=== PATIENT | male | born 1955 | race Caucasian/White ===

== ENCOUNTER 2017-07-28 20:23 | Inpatient (IN) | payer OTHER ==
[~2017-07-28] VITALS: Ht 170.2 cm; Wt 95.0 kg
[~2017-07-28 20:23] MED LIST: ALPRAZOLAM1 M2 PO; BYSTOLIC10 M1 PO; DULOXETINE HCL30 MG PO; LOSARTAN POTAS100 M1 PO
[2017-07-28 20:30] VITALS: BP 119/110
[2017-07-28 21:30] LABS: ABSOLUTE BASOPHIL COUNT 0.1 /CUMM (0.0-0.2); ABSOLUTE EOSINOPHIL COUNT 0.2 /CUMM (0.0-0.7); ABSOLUTE GRANULOCYTE CT 8.3 /CUMM (1.4-6.5); ABSOLUTE MONOCYTE COUNT 0.6 /CUMM (0.10-0.60); BASOPHIL % 0.8 % (0.0-2.0); EOSINOPHIL % 1.5 % (0-5); GRANULOCYTE % 74.5 % (42.2-75.2); HEMATOCRIT 41.8 % (42-52); MEAN CORPUSCULAR HGB 33.9 PG (27.0-31.0); MEAN CORPUSCULAR HGB CONC 33.9 G/DL (33.0-37.0); MEAN PLATELET VOLUME 7.4 FL (7.4-10.4); PLATELET COUNT 180 /CUMM (130-400); RBC DISTRIBUTION WIDTH 16.8 % (11.5-14.5); RED BLOOD CELL CT 4.18 /CUMM (4.70-6.10); WHITE BLOOD CELL COUNT 11.2 /CUMM (4.8-10.8)
--- NOTE | 2017-07-28 21:57 | ED PSYCHIATRIC COMPLAINT ---
History of Present Illness General Chief Complaint: General Adult Stated Complaint: PER SISTER,"FOR CRISIS INTERVENTION" Source: patient, family Exam Limitations: no limitations Vital Signs & Intake/Output Vital Signs & Intake/Output Vital Signs Date Time Temp Pulse Resp B/P B/P Pulse O2 O2 Flow FiO2 Mean Ox Delivery Rate 07/30 1948 98.3 75 156/96 07/30 1945 98.3 75 156/96 07/30 1602 68 156/82 07/30 1556 68 156/82 07/30 1228 66 142/95 07/30 1203 66 142/95 07/30 0829 96.4 72 142/100 07/30 0816 72 142/100 07/30 0816 72 142/100 07/30 0815 72 142/100 07/30 0811 96.4 72 142/100 Allergies Coded Allergies: No Known Allergies (07/27/17) Reconcile Medications Alprazolam 1 MG TABLET 1 TAB PO DAILY ANXIETY (Reported) Duloxetine HCl 30 MG CAPSULE.DR 2 CAP PO DAILY MENTAL HEALTH (Reported) Losartan Potassium 100 MG TABLET 1 TAB PO DAILY BP (Reported) Nebivolol HCl (Bystolic) 10 MG TABLET 1 TAB PO DAILY HEART/BP (Reported) Triage Note: PT FROM HOME C/O ALCOHOL DETOX. PT WAS SEEN HERE YESTERDAY AT [facility] TO RULE OUT A STROKE WHICH ENDED UP BEING SLURRED SPEECH FROM ALCOHOL INTOXICATION. PT STATES HERE TODAY TO ALCOHOL DETOX. PTS BP ELEVATED 190/110 MANUALLY, PT TOOK BYSTOLIC MEDICATION THIS MORNING. HR 83, 02 ON RA 96. PT DENIES ALCOHOL SEIZURE WITHDRAWLS. PT STATES LAST DRINK WAS YESTERDAY AROUND 1500. PT STATES UNKNOWN AMOUNT OF ALCOHOL ("I CANT REMEMBER") PT DRANK VODKA TONIC. PT DENIES -HI/-SI. Triage Nurses Notes Reviewed? yes Duration: acute on chronic Timing: recent history Severity: moderate, severe HPI: 62-year-old male comes into the emergency room for further evaluation of depression and alcohol. Patient has been battling depression and alcohol for 15 /18 years. Things got worse after his son . He has been increasingly depressed. He currently denies any other symptoms. He lives with his . he denies any suicidal or homicidal ideation. (Lance JUDD,Harvinder) Past History Travel History Traveled to [place] past 21 day No Medical History Any Pertinent Medical History? see below for history Cardiovascular: hypertension Psychiatric: alcohol dependence, anxiety, depression Tetanus Vaccine: Surgical History Surgical History: non-contributory Psychosocial History What is your primary language Thai Tobacco Use: Current Daily Use Daily Tobacco Use Amount/Type: =< 4 Cigarettes daily ETOH Use: alcoholic Illicit Drug Use: denies illicit drug use Family History Hx Contributory? No (Harvinder Portillo) Review of Systems Review of Systems Constitutional: Reports: no symptoms. EENTM: Reports: no symptoms. Respiratory: Reports: no symptoms. Cardiovascular: Reports: no symptoms. GI: Reports: no symptoms. Genitourinary: Reports: no symptoms. Musculoskeletal: Reports: no symptoms. Skin: Reports: no symptoms. Neurological/Psychological: Reports: see HPI. Hematologic/Endocrine: Reports: no symptoms. Immunologic/Allergic: Reports: no symptoms. All Other Systems: Reviewed and Negative (Harvinder Portillo) Physical Exam Physical Exam General Appearance: well developed/nourished, mild distress Head: atraumatic Eyes: Bilateral: normal appearance. Ears, Nose, Throat: normal ENT inspection, hearing grossly normal Neck: normal inspection Respiratory: normal breath sounds, no respiratory distress Cardiovascular: regular rate/rhythm Extremities: normal range of motion Neurological/Psychiatric: awake, alert, calm, depressed affect Appearance/Memory/Insight: appropriate appearance, appropriate insight Behavoir/Eye Contact/Speech: cooperative Thoughts/Hallucinations: no apparent hallucination Skin: intact, normal color, warm/dry (Harvinder Portillo) SAD PERSONS Done? CRISIS CONSULT OBTAINED (Jeromy MITCHELL,Latha Lan) Progress Differential Diagnosis: dementia, drug intoxication, drug overdose, drug withdrawal, major depression, PTSD, anxiety, Plan of Care: Current Medications Sig/Betnley Start time Last Medication Dose Stop Time Status Admin Gabapentin 900 MG AT BEDTIME 07/30 2200 AC 07/30 (Neurontin) 2143 Lorazepam 1 MG TID 07/30 1600 AC 07/30 (Ativan) 2144 Gabapentin 300 MG 0800,1400 07/30 1400 AC 07/30 (Neurontin) 1442 Nicotine 21 MG DAILY 07/29 1830 AC 07/30 (Nicoderm) 0817 Nicotine 2 MG Q2P PRN 07/29 1200 AC (Nicotine) Amlodipine Besylate 5 MG DAILY 07/29 1000 AC 07/30 (Norvasc) 0816 Folic Acid 1 MG DAILY 07/29 1000 AC 07/30 (Folic Acid) 0816 Losartan Potassium 100 MG DAILY 07/29 1000 AC 07/30 (Cozaar) 0816 Multivitamins 1 TAB DAILY 07/29 1000 AC 07/30 (Theragran Vitamins) 0816 Nebivolol 10 MG DAILY 07/29 1000 AC 07/30 (Bystolic) 0815 Thiamine HCl 100 MG DAILY 07/29 1000 AC 07/30 (Vitamin B1) 0816 Acetaminophen 650 MG Q4P PRN 07/28 2315 AC (Tylenol) Lorazepam 2 MG Q4 HRS NEEDED PRN 07/28 2314 AC (Ativan) Lorazepam 1 MG Q4 HRS NEEDED PRN 07/28 231 AC (Ativan) Hand-Off Endorsed To: Latha Pinzon MD Endorsed Time: 2242 Pending: consult (crisis) (Harvinder Portillo) Departure Departure Condition: Stable Referrals: Latha Tolentino MD (PCP/Family) Departure Forms: Customer Survey General Discharge Information (Harvinder Portillo) Departure Disposition: STILL A PATIENT Clinical Impression Primary Impression: Depression Secondary Impressions: Alcohol dependency Psych Admission Note Psychiatric Admission: I have seen and evaluated LATHA VELASCO. I have also reviewed all the pertinent lab results and diagnostic results. LATHA VELASCO will be admitted to our inpatient Psychiatric unit for treatment and care. PA/EDGE INKER Co-Sign Statement Statement: ED Attending supervision documentation- [X] I saw and evaluated the patient. I have also reviewed all the pertinent lab results and diagnostic results. I agree with the findings and the plan of care as documented in the PA's/EDGE INKER's documentation. [X] I have reviewed the ED Record and agree with the PA's/EDGE INKER's documentation. [] Additions or exceptions (if any) to the PAs/EDGE INKER's note and plan are summarized below: [Patient to be admitted to Inpatient Psychiatry for unspecified depression and alcohol dependency.] (Latha Pinzon MD) Lorazepam 2 MG AT BEDTIME NEED.. 07/28 2330 AC (Ativan) Acetaminophen 650 MG Q4P PRN 07/285 AC (Tylenol) Lorazepam 2 MG ONCE ONE 07/28 2314 CAN (Ativan) 07/28 2315 Lorazepam 2 MG Q4 HRS NEEDED PRN 07/28 2314 AC (Ativan) Lorazepam 1 MG Q4 HRS NEEDED PRN 07/28 2314 AC (Ativan) Laboratory Tests 07/28/17 2155: Urine Opiates Screen < 100.00, Methadone Screen < 40, Barbiturate Screen < 60, Ur Phencyclidine Scrn < 6.00, Amphetamines Screen < 100, U Benzodiazepines Scrn 261 H, Urine Cocaine Screen < 50, Urine Cannabis Screen < 5.00 07/28/172116: Anion Gap 12, Estimated GFR > 60, BUN/Creatinine Ratio 14.3, Glucose 95, Calcium 9.5, Total Bilirubin 0.5, AST 20, ALT 25, Alkaline Phosphatase 67, Total Protein 6.9, Albumin 4.2, Globulin 2.7, Albumin/Globulin Ratio 1.6, CBC w Diff NO MAN DIFF REQ, RBC 4.18 L, MCV 100.0 H, MCH 33.9 H, MCHC 33.9, RDW 16.8 H, MPV 7.4, Gran % 74.5, Lymphocytes % 17.9 L, Monocytes % 5.3, Eosinophils % 1.5, Basophils % 0.8, Absolute Granulocytes 8.3 H, Absolute Lymphocytes 2.0, Absolute Monocytes 0.6, Absolute Eosinophils 0.2, Absolute Basophils 0.1, Serum Alcohol < 10.0 (Jeromy MITCHELL,Latha Lan) Departure Departure Condition: Stable Referrals: Latha Tolentino MD (PCP/Family) Departure Forms: Customer Survey General Discharge Information (Harvinder Portillo) Departure Disposition: STILL A PATIENT Clinical Impression Primary Impression: Depression Secondary Impressions: Alcohol dependency Psych Admission Note Psychiatric Admission: I have seen and evaluated LATHA VELASCO. I have also reviewed all the pertinent lab results and diagnostic results. LATHA VELASCO will be admitted to our inpatient Psychiatric unit for treatment and care. PA/EDGE INKER Co-Sign Statement Statement: ED Attending supervision documentation- [X] I saw and evaluated the patient. I have also reviewed all the pertinent lab results and diagnostic results. I agree with the findings and the plan of care as documented in the PA's/EDGE INKER's documentation. [X] I have reviewed the ED Record and agree with the PA's/EDGE INKER's documentation. [] Additions or exceptions (if any) to the PAs/EDGE INKER's note and plan are summarized below: [Patient to be admitted to Inpatient Psychiatry for unspecified depression and alcohol dependency.] (Jeromy MITCHELL,Latha Lan)
[2017-07-28 22:05] VITALS: BP 170/95
--- NOTE | 2017-07-28 23:12 | ED PSYCH CRISIS CONSULTATION ---
Crisis Consult Basic Assessment Date of Consult: 07/28/17 Responsible Person/Accompanied By: Brought in by his sister and his son. Insurance Authorization: Insurance #1: Insurance name: MATIAS Phone number: Policy number: [id number] Group number: Authorization number: ED Provider: Patient's ED Provider: Harvinder Portillo Primary Care Physician: Patient's PCP: Robles Tolentino MD PCP's Current Psychiatrist: None Chief Complaint: General Adult Patient's Quote: " I want to straighten this all out." Present Illness: The patient is a 62 year old , male presenting to the ED with increased symptoms of depression, passive SI statements and an increase in alcohol abuse. The patient presents with depressed mood, flat affect and was tearing up during the evaluation. He states that the primary trigger for his depression and alcohol abuse is the loss of his son and father within a one months times span in March of 2001. He states that he has never had any formal treatment for depression or substance abuse, except for seeing therapist for one visit, which he did not find to be helpful. 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 He states that he has noticed an increase in his symptoms and that his family is starting to show concern. He rates his depression a 7 out of 10 ( 10 being most severe), anxiety a 5 out of 10 ( 10 being most severe), and has been feeling helpless at times. He states that he has been experiencing anhedonia and a loss of appetite, noting a 60 pound weight loss, however he is not able to state the timeframe for the weight loss. He does report that his family stated he made a passive SI statement, " I have someone waiting for me on the other side," however he denies that he is suicidal. He denies any HI / AH/ VH. He states that he has noticed an increase in his drinking and that he has been having about 3-4 drinks daily, noting that he only drinks after work. He is motivated to get treatment for his depression and his alcohol abuse and would be willing to sign himself into CPS. SW met with his sister (Portia Machuca [phone]) and his son Rory Hall Jr. ([phone]), for collateral information. They confirm that his depression and alcohol abuse have been getting worse. They note that he has had periods where he was not drinking, however primarily believe that he is drinking all day, everyday lately. They both note that he stated to them independently, that "he has someone waiting on the other side." They are unsure if he would kill himself, however do believe that he does not have concern for his health or wellbeing. They believe that he is slowly killing himself. Per his son, Rory Gillette he missed a meeting at work last week, which was to discuss a coworker smelling alcohol on his breath. Rory Gillette also notes that he was presenting with altered mental status Darius morning, when he was supposed to be at the meeting. It is unclear if he was drinking at that time. They have found him to be isolating and spending less time with his family. They believe that he requires an inpatient admission at this time. Patient's Address: [address] [place] [address] Other Phone Number: Family/Informants Interviewed: Son- Robles Hall Jr. - [phone] Sister- Portia Machuca- [phone] Allergies - Coded Allergies: No Known Allergies (07/27/17) Current Medications - Scheduled Medications Alprazolam 1 MG TABLET 1 TAB PO DAILY ANXIETY #30 (Reported) Entered as Reported by Sandy Fatima on 07/27/171937 Duloxetine HCl 30 MG CAPSULE.DR 2 CAP PO DAILY MENTAL HEALTH #60 (Reported) Entered as Reported by Sandy Fatima on 07/27/171937 Losartan Potassium 100 MG TABLET 1 TAB PO DAILY BP #30 (Reported) Entered as Reported by Sandy Fatima on 07/27/171938 Nebivolol HCl (Bystolic) 10 MG TABLET 1 TAB PO DAILY HEART/BP #30 (Reported) Entered as Reported by Sandy Fatima on 07/27/171938 Laboratory Results: Laboratory Tests 07/28/175: Urine Opiates Screen < 100.00, Methadone Screen < 40, Barbiturate Screen < 60, Ur Phencyclidine Scrn < 6.00, Amphetamines Screen < 100, U Benzodiazepines Scrn 261 H, Urine Cocaine Screen < 50, Urine Cannabis Screen < 5.00 07/28/17 2117: Anion Gap 12, Estimated GFR > 60, BUN/Creatinine Ratio 14.3, Glucose 95, Calcium 9.5, Total Bilirubin 0.5, AST 20, ALT 25, Alkaline Phosphatase 67, Total Protein 6.9, Albumin 4.2, Globulin 2.7, Albumin/Globulin Ratio 1.6, CBC w Diff NO MAN DIFF REQ, RBC 4.18 L, MCV 100.0 H, MCH 33.9 H, MCHC 33.9, RDW 16.8 H, MPV 7.4, Gran % 74.5, Lymphocytes % 17.9 L, Monocytes % 5.3, Eosinophils % 1.5, Basophils % 0.8, Absolute Granulocytes 8.3 H, Absolute Lymphocytes 2.0, Absolute Monocytes 0.6, Absolute Eosinophils 0.2, Absolute Basophils 0.1, Serum Alcohol < 10.0 Past History Past Medical History Cardiovascular: hypertension Psychiatric: alcohol dependence, anxiety, depression Past Surgical History Surgical History: non-contributory Psychosocial History Strengths/Capabilities: He appears to have a very supportive family. He does have good insight into his need for treament and is motivated to attend. Physical Limitations (Interventions): None noted Psychiatric Treatment History Psych Treatment Psychiatric Treatment No (Patient denies) Inpatient Treatment No (N/A) Outpatient Treatment No Location of Treatment N/A Reason for Treatment N/A Dates of Treatment N/A Response to Treatment N/A Diagnosis by History: N/A Substance Use/Abuse History Drug Use/Abuse Substances Used/Abused Yes Substance Used/Abused Alcohol First Use 17 years old Last Used Yesterday; 07/27/2017 How much used/taken "3-4 vodka and tonics." How often He states that he has been drinking daily. For how long Unlcear Route of use oral Substance Abuse Treatment Substance Abuse Treatment Past Substance Abuse [place] No (Patient denies) Inpatient Treatment No (Patient denies) Outpatient Treatment No Location of Treatment N/A Reason for Treatment N/A Dates of Treatment N/A Response to Treatment N/A Comments: N/A Current Mental Status Mental Status Orientation: Person, Place, Situation Affect: Depressed, Flat, Sad Speech: WNL Neuro-vegetative: Anhedonia, Appetite Decreased, Helpless Appearance Appearance- Dress/Hygiene: He was sitting in a chair, in hospital attire, neat clean and well kempt. He did appear to be tearing up throughout the evalution. Behaviors Thought Process: WNL Thought Content: WNL Memory: WNL Insight: WNL SI/HI Risk Assessment Past Suicidal Ideation/Attempts No (patient denies) Current Suicidal Ideation/Att No Past Homicidal Ideation/Att: No Current Homicidal Ideation/Attempts No Degree of Intent: He denies any current suicidal ideation and states that would not kill himself because of his grandchildren. Per his family he has been making passive suicidal statements; " I have some one waiting for me on the other side. " Danger To: Self Gravely Disabled: N/A Risk Factors: high anxiety/distress, substance abuse, male Lethality Ratin PTSD Checklist PTSD Done? patient declined (Denies trauma or abuse hx.) ED Management Sitter: Yes Restraints: No DSM5/PS Stressors/Medical Prob Diagnosis' (DSM 5, Stressors, Medical): F32.9 Unspecified Depressive Disorder F10.20 Alcohol Use Disorder Medical: Hypertension Stressors: prolonged grief Current GAF: 29 Comments: N/A Departure Disposition Psych Medical Clearance Date: 07/28/17 Medically Cleared at: 2229 Time Started: 2229 Time Ended: 2314 Psychiatrist Consulted: Dr. Armando Date Disposition Established: 07/28/17 Time Disposition Established: 2314 Plan for Disposition - Modality: Inpatient Psychiatry Facility: [facility] Contact: N/A Telephone: N/A Rationale for Disposition: The patient is a 62 year old , male presenting to the ED with increased symptoms of depression, passive SI statements and an increase in alcohol abuse. The case was discussed with Dr. Parra and he would like to admit the patient to [facility]PS on a voluntary basis. The patient is in agreement with the admission and signed the voluntary form. Type of IP Admission: Voluntary Additional Instructions: N/A Referrals Robles Tolentino MD (PCP/Family)
--- NOTE | 2017-07-28 23:42 | IP CRISIS DIAG ASSESS PSYCH ---
Diagnostic Assessment Basic Assessment Insurance Authorization: Insurance #1: Insurance name: MATIAS Policy number: [id number] Authorization number: [id number] Authorization received from Wayne Ortiz at [facility] ([facility]) / [facility] 1 [phone] Please contact [phone] for concurrent review . Authorization is for 4 days 07/29 to 08/01 . Review will be on 08/01. Primary Care Physician: Patient's PCP: Robles Tolentino MD PCP's Patient's Quote: " I want to straighten this all out." Present Illness: Crisis evaluation with Shayy Noriega LCSW 07/28/2017 22:30 The patient is a 62 year old , caucasain male presenting to the ED with increased symptoms of depression, passive SI statements and an increase in alcohol abuse. The patient presents with depressed mood, flat affect and was tearing up during the evaluation. He states that the primary trigger for his depression and alcohol abuse is the loss of his son and father within a one months times span in March of 2001. He states that he has never had any formal treatment for deprssion or substnace abuse, except for seeing therapist for one visit, which he did not find to be helpul. 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 He states that he has noticed an increase in his smypomts and that his family is starting to show concern. He rates his depression a 7 out of 10 ( 10 being most severe), anxiety a 5 out of 10 ( 10 being most severe), and has been feeling helpless at times. He states that he has been experiencing anhedonia and a loss of appetite, nonting a 60 pound weight loss, however he is not able to state the timeframe for the weight loss. He does report that his family stated he made a passive SI statement, " I have someone waiting for me on the other side," however he denies that he is suicidal. He denies any HI / AH/ VH. He states that he has noticed an increase in his dirnking and htat he has been having about 3-4 drinks daily, noting that he only drinks after work. He is motivated to get treatment for his depression and his alcohol abuse and would be willing to sign himself into CPS. SW met with his sister (Portia Machuca [phone]) and his son Rory Hall Jr. ([phone]), for collateral information. They confirm that his deprssion and alcohol abuse have been getting worse. They note that he has had periods where he was not drinking, however pimarily believe that he is drinking all day, everyday lately. They both note that he stated to them independently, that "he has someone waiting on the other side." They are unsure if he would kill himself, however do believe that he does not have concen for his helath or wellbeing. They believe that he is slowly killing himself. Per his son, Rory Gillette he missed a meeting at work last week, which was to discuss a coworker smelling alcohol on his breath. Rory Gillette also notes that he was presenitng with altered mental status Darius morning, when he was supposed to be at the meeting. It is unclear if he was drinking at that time. They have found him to be isolating and spending less time with his family. Patient's Address: [address] [place] [address] Who Do You Live With? Spouse Feel Safe Where You Live? Yes Feel Safe in Your Relationship Yes Marital Status: Do You Have Children? Yes Ages? 36 Primary Language? Malay Language(s) Spoken At Home: Malay Family/Informants Interviewed: , sister, and son Robles Gillette Allergies - Coded Allergies: No Known Allergies (07/27/17) Current Medications - Scheduled Medications Alprazolam 1 MG TABLET 1 TAB PO DAILY ANXIETY #30 (Reported) Entered as Reported by Sandy Fatima on 07/27/171937 Duloxetine HCl 30 MG CAPSULE.DR White CAP PO DAILY MENTAL HEALTH #60 (Reported) Entered as Reported by Sandy Fatima on 07/27/171937 Losartan Potassium 100 MG TABLET 1 TAB PO DAILY BP #30 (Reported) Entered as Reported by Sandy Fatima on 07/27/171938 Nebivolol HCl (Bystolic) 10 MG TABLET 1 TAB PO DAILY HEART/BP #30 (Reported) Entered as Reported by Sandy Fatima on 07/27/17 1939 Consequences of Psych Med Use: N/A Comment: - Lab Results: Laboratory Tests 07/28/172154: Urine Opiates Screen < 100.00, Methadone Screen < 40, Barbiturate Screen < 60, Ur Phencyclidine Scrn < 6.00, Amphetamines Screen < 100, U Benzodiazepines Scrn 261 H, Urine Cocaine Screen < 50, Urine Cannabis Screen < 5.00 07/28/172116: Anion Gap 12, Estimated GFR > 60, BUN/Creatinine Ratio 14.3, Glucose 95, Calcium 9.5, Total Bilirubin 0.5, AST 20, ALT 25, Alkaline Phosphatase 67, Total Protein 6.9, Albumin 4.2, Globulin 2.7, Albumin/Globulin Ratio 1.6, CBC w Diff NO MAN DIFF REQ, RBC 4.18 L, MCV 100.0 H, MCH 33.9 H, MCHC 33.9, RDW 16.8 H, MPV 7.4, Gran % 74.5, Lymphocytes % 17.9 L, Monocytes % 5.3, Eosinophils % 1.5, Basophils % 0.8, Absolute Granulocytes 8.3 H, Absolute Lymphocytes 2.0, Absolute Monocytes 0.6, Absolute Eosinophils 0.2, Absolute Basophils 0.1, Serum Alcohol < 10.0 Toxicology Screen Completed? Yes Results: positive (Benzo) Symptoms of Use: N/A Benzo is prescribed Past History Past Medical History Medical History: None/Denies Past Surgical History Surgical History none Abuse/Trauma History Trauma History/Current Trauma: Denies Legal History Current Legal Status: none Have you ever been arrested? No Number of Arrests: [address] Dates: None Board Attendant N/A Psychosocial History Strengths/Capabilities: Patient is employed. Patient has a close supportive family. Physical Limitations (Interventions): None Psychiatric Treatment History Psych Treatment Psychiatric Treatment No Inpatient Treatment No Outpatient Treatment No Location of Treatment - Reason for Treatment - Dates of Treatment - Response to Treatment - Diagnosis by History: Depression Risk Factors: male Substance Use/Abuse History Drug Use/Abuse minimum 12mo Hx Substances Used/Abused Yes Substance Used/Abused Alcohol First Use Unspecified Last Used yesterday How much used/taken 1/2 bottle of vodka - patient drinks vodka tonics How often Daily For how long 4-5 years Route of use Ingestion Substance Abuse Treatment Substance Abuse Treatment Past Substance Abuse TX No Inpatient Treatment No Outpatient Treatment No Location of Treatment - Reason for Treatment - Dates of Treatment - Response to Treatment - Comments: - Sexual History Sexually Active No # of partners 01 Sexual Orientation Heterosexual Sexual Concerns: None specified Education History Highest Level of Education: not sure Preferred Learning Style: Not assessed Current Mental Status Mental Status Orientation: Person, Place, Situation Affect: Depressed Speech: WNL Neuro-vegetative: Anhedonia, Helpless, Loss of Interest Appearance Appearance- Dress/Hygiene: Patient is well groomed with no remarkable features. Behaviors Thought Process: WNL Thought Content: WNL Memory: WNL Insight: WNL SI/HI Risk Assessment - Minimum 6mo History- Past Suicidal Ideation/Attempts Yes (Suicidal statements) Current Suicidal Ideation/Att Yes (Passive SI recently. No intent) Past Homicidal Ideation/Att: No Current Homicidal Ideation/Attempts No Degree of Intent: None Danger To: Self Gravely Disabled: Lack of Insight, Poor Impulse Control, Poor Judgment Risk Factors: high anxiety/distress, substance abuse, lack of outcome concern, weapons access, male Lethality Ratin Needs/Init TX Plan/Goals: Patient requires psychiatric evaluation with consideration of medication management. Patient will participate in [facility] treatment. Patient will participate in social work assessment. Patient will receive substance use counseling and alcohol related treatement for potential withdrawal. AUDIT-C Questionnaire: AUDIT-C Questionnaire: Response Value ETOH use in the past year 4 or more per week 4 # drinks typical/day 5 or 6 2 6 or > drinks per occasion Weekly 3 Total 9 DSM5/PS Stressors/Medical Prob Diagnosis' (DSM 5, Stressors, Medical): F32.9 Unspecified depressive disorder F10.20 Alcohol use disorder, moderate Current GAF: 20 Comments: Substance use Bereavement of son F10.20 Alcohol use disorder, moderate Current GAF: 20 Comments: Substance use Bereavement of son
[2017-07-29] VITALS (14 sets, daily range): BP systolic 140–164; BP diastolic 88–118
--- NOTE | 2017-07-29 08:51 | CPS PROVIDER INIT ASMT PSYCH ---
Psychiatric Admission Rock Loader's Note Reviewed: Yes Patient Seen and Examined: Yes Identifying Information: Robles is a 62-year-old White male presenting to the ED with increased symptoms of depression, and an increase in alcohol consumption. Chief Complaint: " I want to straighten this all out." Reaction to Hospitalization: voluntary admission History of Present Illness Onset of Illness: Gradual onset, chronic symptoms, with worsening over past few weeks Circumstances Leading to Admission: increasing depression and impairment in daily function as well as daily alcohol use Problem(s) Justifying Need for Admission: severe depressed and vague statements suggesting a sense of hopelessness, sense of worthlessness of life and maybe even lack of concern about risk of Past Psychiatric History Past Diagnosis(es)- if any: Depression and anxiety since the of son, Alcohol use disorder Past Precipitating Factors- if any: not liking antidepressants/not taking them and alcohol use - Include inpatient and outpatient treatment Treatment History: minimal, PCP tried helping him with medications, patient has never been inpatient or in IOP or under the care of a psychiatrist History of Suicide Attempts or Gestures Patient denied ever attempting suicide Substance Abuse History: Alcohol (has been getting gradual worse lately) Allergies: Coded Allergies: No Known Allergies (07/27/17) Home Med List: he reported that he has not been taking Cymbalta he said he was taking Xanax and his BP medications - Include any medical condition(s) that may - impact the patient's recovery/remission Past Medical History: Hypertension Past History Medical History Cardiovascular: hypertension Psychiatric: alcohol dependence, anxiety, depression History of MRSA: No History of VRE: No History of CDIFF: No Isolation History: Standard Tetanus Vaccine: Surgical History Surgical History: none Psychiatric Family/Social Hx Family History Psychiatric Illness: none Substance Use: none Suicides: none Social History Living Situation: stable housing Significant Relationships (family/friends): very supportive family Education: see biopsychosocial 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 - #1 Recognizing dangerous situations. - #2 Coping Skills. - #3 Basic information about quitting. Status of Tobacco Cessation Counseling: #1, #2 AND #3 Completed Cessation Med Status Nicotine Gum Ordered Alcohol Screening - ETOH screen POS if BAL >=80 or Audit-C>= M4/F3 Audit-C Score from Diag Assess: 9 Blood Alcohol Level: Laboratory Tests 07/28 2116 Toxicology Serum Alcohol (<10 MG/DL) < 10.0 Alcohol Use Screening Results: Pos per Audit C &/or BAL - If ETOH counseling indicated - the following topics are required. - #1 Express concern about the patient's - drinking at unhealthy levels, include informing - of national norms for moderate drinking: - men <= 14 drinks/week, max 4 drinks/occasion - women <= 7 drinks/week, max 3 drinks/occasion - #2 Providing feedback, including linking alcohol to - negative physical effects (liver injury, hypertension) - negative emotional effects (relationship problems and - depression) - negative occupational consequences (reduced work - performance) - #3 Advising the patient to abstain from alcohol or - to drink below national norms for moderate drinking - (as listed above). Status of ETOH Use Counseling: #1, #2 AND #3 Completed. Metabolic Screening - Screen if on a Neuroleptic Medication - Metabolic screening should include: - Blood Pressure, BMI, Glucose or Hgb A1c, & a - Lipid profile from within the past 365 days. Metabolic Screening ([X]) Not Applicable, patient not on a neuroleptic. OR () Patient on a neuroleptic(s) . Enter below results for Hemoglobin A1C, and lipid panel if obtained during the last 365 days. BMI: 32.000 Blood Pressure: 150/100 Laboratory Results From [facility] (If applicable): Exam and Plan Mental Status Examination Ambulation Status: ambulates independently with need for walker or wheelchair Appearance: unremarkable Attitude towards examiner: Calm and cooperative Psychomotor activity: Normal psychomotor activity Behavior: No abnormal behaviors Quality of speech: Normal speech, not pressured, not slurred Affect: Good range of affect Mood: Does not believe that he is that depressed, some anxiety Suicidal Ideation: Denied thinking of suicide Homicidal Ideation: Denied thinking of violence or homicide Hallucinations: Denied hallucinations Paranoid/Delusional Material: Denied feeling paranoid, there were no delusions Difficulties with thought organization: There were no difficulties with thought organization, he was coherent Insight: Partial insight Judgment: Depends on sobriety Orientation: He was oriented to time place and person Cognition: There was no gross deficits in cognition Memory Function: There was no gross deficit in memory Estimate of intellectual functioning: Average Assets/Strengths Patient Identified Assets/Strengths: Patient is hard-working and likable, he has a very supportive family, he has stable housing, and he still has a job Impression/Plan Impression and Plan: 62-year-old white male who presents with increasing depression and increasing consumption of alcohol. He has no prior history of inpatient psychiatric admissions. He has no prior history of suicide attempts. He has no prior history of detoxifications or rehabs. - Include all active medical diagnosis that require tx DSM 5 Diagnosis(es): Unspecified depressive disorder Alcohol use disorder, severe Hypertension - Initial Tx Plan for Active Psych & Medical Conditions Treatment Plan: Inpatient psychiatric care, 15 minute checks, the nursing will do nursing assessments vital signs and provide education The foster care social worker to obtain collateral information and set up aftercare plans Group therapy Milieu therapy Psychiatrist will meet with the patient on a daily basis to evaluate mental status and evaluate medications [facility] protocol H&P by Grab Hooker - Factors that would help patient function - in a less restrictive setting. Factors: Abstinence from alcohol
--- NOTE | 2017-07-29 14:27 | SOCIAL WORKER SOCIAL HX PSYCH ---
Vandana Walker 07/29/17 1403: Social History Basic Assessment Insurance Authorization: Insurance #1: Insurance name: [facility] Phone number: Policy number: [id number] Group number: Authorization number: Curr Source of Income/Entitlements: employment Primary Care Physician: Patient's PCP: Robles Tolentino MD PCP's Primary Language? Omani Language(s) Spoken At Home: Omani Living Situation Rents or Owns Home? owns Feel Safe Where You Are Living Yes Feel Safe in Relationships? Yes Allergies - Coded Allergies: nicotine (Mild, skin rash to patch formulation only 08/02/17) Past History Past Medical History Cardiovascular: hypertension Psychiatric: alcohol dependence, anxiety, depression Past Surgical History Surgical History: non-contributory /Family History Place/Country of Origin: [place] Childhood Family Constellation: Mother, father, 2 sisters and 2 brothers Primary Childhood Caretakers: father, mother Family Life During Childhood: "Okay" DCF Involvement? No Mother's Age (Current/): 92 Relationship w/Mother: "Very good" Father's Age (Current/): 71 Relationship w/Father: "Very good" Any Sibling(s)? Yes Sibling's Gender(s)/Age(s): female Sibling 1: (70), male Sibling 2: (67), female Sibling 3: (62), male Sibling 4: (54) Relationship w/Sibling(s): "Good" Family Psych/Sub Abuse/Add Hx: None Abuse/Trauma History Trauma History/Current Trauma: Denies Legal History Have you ever been arrested No Number of Arrests: 0 Hx of Juvenile Legal Charges? No Hx of Adult Legal Charges? No Civil Proceedings: Being sued, unsure of court date. Didn't elaborate. Child Protective Serv Involvmnt No Toby Maker N/A Psychosocial History Primary Support System: sibling(s), friend, son Strengths/Capabilities: He appears to have a very supportive family. He does have good insight into his need for treament and is motivated to attend. Physical Limitations (Interventions): None noted Last Physical: 6 months ago (Jan 2017) History of Seizures? No History of Blackouts? No [place]/Social/Peer Relations Has a close group of friends Meaningful Activities: Likes to do things with his hands Childhood Jehovah'S Witness: Yazidi Current Mandaen Affiliation: Yazidi Is Spirituality Important to You? Yes Patient's Ethnicity: Luxembourger, Welsh Cultural/Ethnic Issues: None Are There Developmental Issues? No Milestones Achieved: fine motor, gross motor Psychiatric Treatment History Psych Treatment Inpatient Treatment No (N/A) Outpatient Treatment No Location of Treatment N/A Reason for Treatment N/A Dates of Treatment N/A Response to Treatment N/A Diagnosis: N/A Risk Factors: high anxiety/distress, substance abuse, male Substance Use/Abuse History Drug Use/Abuse Substance Used/Abused Alcohol First Use 17 years old Last Used Yesterday; 07/27/2017 How much used/taken "3-4 vodka and tonics." How often He states that he has been drinking daily. For how long Unlcear Route of use oral Have Had Periods of Sobriety? Yes Explain: Unclear Have You Ever Attended AA? Yes Symptoms of Use: N/A Benzo is prescribed Substance Abuse Treatment Substance Abuse Treatment Inpatient Treatment No (Patient denies) Outpatient Treatment No Location of Treatment N/A Reason for Treatment N/A Dates of Treatment N/A Response to Treatment N/A Sexual History Sexually Active No # of partners 01 Sexual Orientation Heterosexual Sexual Concerns: None specified Education History Highest Level of Education: not sure Preferred Learning Style: Not assessed HX of Learning Difficulties: None reported Barriers to Learning: None reported Special Communication Needs: None reported Employment History Employment Employed 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 Pt then worked in the [employer] and currently works for the town [employer]. History Have You Been in The ? No Current Mental Status Mental Status Orientation: Person, Place, Situation Affect: Depressed, Flat, Sad Speech: WNL Neuro-vegetative: Anhedonia, Appetite Decreased, Helpless Appearance Appearance- Dress/Hygiene: He was sitting in a chair, in hospital attire, neat clean and well kempt. He did appear to be tearing up throughout the evalution. Behaviors Thought Process: WNL Thought Content: WNL Memory: WNL Insight: WNL SI/HI Risk Assessment Past Suicidal Ideation/Attempts No (patient denies) Current Suicidal Ideation/Att No Past Homicidal Ideation/Att: No Current Homicidal Ideation/Attempts No Degree of Intent: He denies any current suicidal ideation and states that would not kill himself because of his grandchildren. Per his family he has been making passive suicidal statements; " I have some one waiting for me on the other side. " Danger To: Self Gravely Disabled: N/A Lethality Ratin - Conclusion and Recommendations for treatment - and discharge planning Marvin Clark 08/05/17 0803: Social History Current Medications - Scheduled Medications Amlodipine Besylate (Norvasc) 10 MG TABLET 10 MG PO DAILY high blood pressure #30 TAB Prescribed by Je Armando MD on 08/04/17 Gabapentin 300 MG CAPSULE 300 MG PO 0800,1400 reducing risk for seizures #60 CAP Prescribed by Je Armando MD on 08/04/17 Gabapentin 300 MG CAPSULE 900 MG PO AT BEDTIME reduce risk of seizure + sleep #90 CAP Prescribed by Je Armando MD on 08/04/17 Losartan Potassium 100 MG TABLET 1 TAB PO DAILY BP #30 (Reported) Entered as Reported by Sandy Fatima on 07/27/171938 Naltrexone HCl 50 MG TABLET 50 MG PO DAILY alcohol cravings #30 TAB Prescribed by Je Armando MD on 08/04/17 Nebivolol HCl (Bystolic) 10 MG TABLET 1 TAB PO DAILY HEART/BP #30 (Reported) Entered as Reported by Sandy Fatima on 07/27/171938 Sertraline HCl 50 MG TABLET 50 MG PO DAILY depression and anxiety #30 TAB Prescribed by Je Armando MD on 08/04/17 Discontinued Medications Alprazolam 1 MG TABLET 1 TAB PO DAILY ANXIETY #30 (Reported) Discontinued reason: Per Doctor Decision Duloxetine HCl 30 MG CAPSULE. 2 CAP PO DAILY MENTAL HEALTH #60 (Reported) Discontinued reason: Changed to different med Current Mental Status - Conclusion and Recommendations for treatment - and discharge planning
--- NOTE | 2017-07-29 15:39 | SOCIAL WORKER PROG NOTE PSYCH ---
Social Work Progress Note Progress Note Robles reports that he had an "episode" on Friday. Stated he was drinking and that he blacked out. He reports that he has been drinking for a long time, but has never experienced anything like that. When asked how much he has been drinking? He stated that it has been 2-4 cocktails a night after work. He shared that he was recently put on Cymbalta by his prescriber Elham Negron. He said he stopped the medication after being on it for 3 weeks due to feeling dizzy and light headed. He also reported that he was being prescribed Ativan since 2000 and had been taking that daily up until about a week ago. He stopped it abruptly as he stated he got frustrated with having to call for it so frequently now that the rules about prescribing have changed. He has been taking Ativan since his son's . He talked about the loss of his son, Father, and Uncle all within a 3 month period of time. His son was killed by a drunk front end loader driver [place] [address] at age 22. He has not really processed his loss. He saw a therapist 1x and then never went back. When asked why? He stated it was his attitude, as he didn't feel they could help him. He reports that he doesn't have a day that passes that he isn't thinking about what happened with his son. He feels his handles things better than he does. He has another son Robles, who helped him come to the hospital. Robles stated he is open to having his son and his come in for a family meeting. We talked about the idea of tx for his drinking and depression. He is considering rehab and mentioned [facility] as a possibility. I gave him some information on [facility] and on [facility]. He said he will look over the information and discuss it with family. He is not concerned about having time off from work. He currently works for the [employer] department in [place]. He says he works 60- 70 hours a week and they owe him months of comp time. He denies being suicidal or having any hx of being suicidal. He has never been in tx before. He doesn't know what to expect. I told him he can certainly call places to ask additional questions if that would help make a decision. Overall, Robles wants to get back to life as he knows it. Somewhat tearful in talking about his son. Mood seems calm, cooperative. Called Mrs. Hall to schedule a family meeting. We will meet at 11am. She will coordinate with her son to come as well.
--- NOTE | 2017-07-29 20:14 | History & Physical ---
General Information and HPI MD Statement: I have seen and personally examined LATHA VELASCO and documented this H&P. The patient is a 62 year old M who presented with a patient stated chief complaint of "I want to straighten this all out" ]. Source of Information: patient, family Exam Limitations: no limitations History of Present Illness: 62 year old male brought in by sister for crisis intervention. For ETOH detox elevated BP and depression. Has had no seizures no withdrawal signs. The depression got worse after his son . has depressive mood,flat affect,feeling helpless at times. For all this reasons admitted. Allergies/Medications Allergies: Coded Allergies: No Known Allergies (07/27/17) Home Med list Alprazolam 1 MG TABLET 1 TAB PO DAILY ANXIETY (Reported) Duloxetine HCl 30 MG CAPSULE.DR 2 CAP PO DAILY MENTAL HEALTH (Reported) Losartan Potassium 100 MG TABLET 1 TAB PO DAILY BP (Reported) Nebivolol HCl (Bystolic) 10 MG TABLET 1 TAB PO DAILY HEART/BP (Reported) Compliance With Home Meds: UNKNOWN Past History Travel History Traveled to [place] past 21 day No Medical History Cardiovascular: hypertension Psychiatric: alcohol dependence, anxiety, depression History of MRSA: No History of VRE: No History of CDIFF: No Isolation History: Standard Tetanus Vaccine: Surgical History Surgical History: non-contributory Past Family/Social History Psychosocial History Where do you live? 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 Exam & Diagnostic Data Last 24 Hrs of Vital Signs/I&O Vital Signs Date Time Temp Pulse Resp B/P B/P Pulse O2 O2 Flow FiO2 Mean Ox Delivery Rate / 1614 68 140/92 / 1610 140/92 / 1603 68 163/100 /06 1214 80 146/96 02/06 1212 80 146/96 02/ 1055 97.3 92 16 150/100 02/06 1054 97.3 92 16 150/100 02/06 1054 97.3 92 16 150/100 02/06 0820 97.3 92 150/100 02/06 0809 97.3 92 150/100 02/06 0633 88 16 164/92 02/ 0225 97.2 92 16 164/102 02/06 0224 97.2 92 16 164/102 02/06 0157 152/94 02/06 0148 97.8 89 18 132/102 96 Room Air 02/ 0031 98.0 82 18 162/118 02/06 0005 98.0 82 18 162/118 02/06 0005 98.0 82 18 162/118 96 Room Air / 2205 98.3 71 20 170/95 /2203 98.3 71 20 170/95 98 Room Air 07/28 2029 96.0 83 18 119/110 /2029 96.0 83 18 190/110 96 Room Air Intake & Output 07/29 1600 07/29 0800 02/ 0000 Intake Total 0 Output Total Balance 0 Intake, Oral 0 Patient 209 lb 210 lb Weight Weight Reported by Patient Measurement Method Physical Exam General Appearance Alert, Oriented X3, Cooperative, No Acute Distress Skin No Rashes HEENT PERRLA, EOMI Neck Supple, No JVD, No thryomegaly Lymphatic Axillary nl, Cervical nl Cardiovascular Regular Rate, No Murmurs Lungs Clear to Auscultation, Normal Air Movement Abdomen Soft, No Tenderness, No Hepatospenomegaly Neurological Exam Findings: Normal Gait, Normal Speech, Strength at 5/5 X4 Ext, Normal Tone, Sensation Intact, Cranial Nerves 3-12 NL, Reflexes 2+ Cranial Nerves II through XII: Intact. Extremities No Edema, Normal Pulses Vascular Normal Pulses, Pulses Symmetrical Last 24 Hrs of Labs/Reji: Laboratory Tests 07/28/172154: Urine Opiates Screen < 100.00, Methadone Screen < 40, Barbiturate Screen < 60, Ur Phencyclidine Scrn < 6.00, Amphetamines Screen < 100, U Benzodiazepines Scrn 261 H, Urine Cocaine Screen < 50, Urine Cannabis Screen < 5.00 07/28/172116: Anion Gap 12, Estimated GFR > 60, BUN/Creatinine Ratio 14.3, Glucose 95, Calcium 9.5, Total Bilirubin 0.5, AST 20, ALT 25, Alkaline Phosphatase 67, Total Protein 6.9, Albumin 4.2, Globulin 2.7, Albumin/Globulin Ratio 1.6, CBC w Diff NO MAN DIFF REQ, RBC 4.18 L, MCV 100.0 H, MCH 33.9 H, MCHC 33.9, RDW 16.8 H, MPV 7.4, Gran % 74.5, Lymphocytes % 17.9 L, Monocytes % 5.3, Eosinophils % 1.5, Basophils % 0.8, Absolute Granulocytes 8.3 H, Absolute Lymphocytes 2.0, Absolute Monocytes 0.6, Absolute Eosinophils 0.2, Absolute Basophils 0.1, Serum Alcohol < 10.0 Assessment/Plan As Ranked By This Provider Problem List: 1. Depression 2. Alcohol dependency Miscellaneous Miscellaneous Documentation Attending Case Discussed With: Je Armando MD Primary Care Physician: Latha Tolentino MD Patient sees these Specialists psych. Level of Patient Care: [facility] Consults Needed: Consulting Specialty: Psychiatry Consulting Physician: Dr. Potter Reason for Consult: Depression, ETOH excess.
[2017-07-30] VITALS (8 sets, daily range): BP systolic 142–156; BP diastolic 82–100
--- NOTE | 2017-07-30 10:35 | CP SOUTH PROGRESS NOTE PSYCH ---
Psych (Inpt) Progress Note Progress Note Mental Status Examination: Blood pressure 142/100, pulse 72 bpm, and temperature 96.4 Robles ambulates independently with no need for walker or wheelchair, Calm and cooperative Normal psychomotor activity, no tremulousness , no sweating and no abnormal behaviors Normal speech, not pressured, not slurred; Good range of affect, Does not believe that he is that depressed, he does acknowledge having anxiety; Denied thinking of suicide; Denied thinking of violence or homicide Denied hallucinations Denied feeling paranoid, there were no delusions There were no difficulties with thought organization, he was coherent Partial insight He was oriented to time place and person There was no gross deficits in cognition There was no gross deficit in memory Impression and Plan: Robles is a 62-year-old White male presenting to the ED with increased symptoms of depression, and an increase in alcohol consumption with a chief complaint of I want to straighten this all out." Gradual onset, chronic symptoms, with worsening over past few weeks It appears that the patient was on 1mg Xanax daily for several years and ran out about a week before his admission because he was embarrassed to keep calling PCP office for re-fills. He has no prior history of inpatient psychiatric admissions. He has no prior history of suicide attempts. He has no prior history of detoxifications or rehabs. Likely Diagnoses: Unspecified depressive disorder Unspecified Anxiety Disorder Alcohol use disorder, severe Hypertension Treatment Plan Update: Continue CIWA protocol Reduce Ativan to 1 mg TID Add Gabapentin 300 mg twice in daytime and 900 mg at bedtime Inpatient psychiatric care, 15 minute checks, the nursing will do nursing assessments vital signs and provide education; The social media director to obtain collateral information and set up aftercare plans Group therapy, Milieu therapy, Psychiatrist will meet with the patient on a daily basis to evaluate mental status and evaluate medications
--- NOTE | 2017-07-30 13:48 | SOCIAL WORKER PROG NOTE PSYCH ---
Social Work Progress Note Progress Note Robles shared that things are going okay on the unit, other than his desire to leave soon he reports feeling okay. I told him that a family meeting has been scheduled for tomorrow at 11am. He stated that he has not yet talked with his or son about rehab and he still hasn't made up his mind. The more we talked about it the more it sounded as if he really didn't want to go. He then stated "I don't think it's for me", "I don't think it's necessary." He said he would not go if it is up to him, but he isn't sure what his family is expecting. I asked if he was interested in further treatment at all? He said maybe. I mentioned IOP being another option. He said he would talk it over with family and we would discuss it at the family meeting tomorrow. Talked about how he does seem to be self-medicating some symptoms and that there is benefit in being able to work through
--- NOTE | 2017-07-30 13:54 | SOCIAL WORKER PROG NOTE PSYCH ---
Social Work Progress Note Progress Note Robles shared that things are going okay on the unit, other than his desire to leave soon he reports feeling okay. I told him that a family meeting has been scheduled for tomorrow at 11am. He stated that he has not yet talked with his or son about rehab and he still hasn't made up his mind. The more we talked about it the more it sounded as if he really didn't want to go. He then stated "I don't think it's for me", "I don't think it's necessary." He said he would not go if it is up to him, but he isn't sure what his family is expecting. I asked if he was interested in further treatment at all? He said maybe. I mentioned IOP being another option. He said he would talk it over with family and we would discuss it at the family meeting tomorrow. Talked about how he does seem to be self-medicating some symptoms and that there is benefit in being able to work through his issues. He mentioned seeking out AA. He has never tried AA before. Talked about the benefits of rehab vs. leaving the program and going to outpatient. Gave him an AA meeting book.
[2017-07-31] VITALS (9 sets, daily range): BP systolic 142–157; BP diastolic 82–97
--- NOTE | 2017-07-31 09:12 | CP SOUTH PROGRESS NOTE PSYCH ---
Psych (Inpt) Progress Note Progress Note Vitals Blood Pressure 153/92 07/31/17 Pulse Rate 77 07/31/17 Temperature 97.4 07/31/17 Mental Status Examination: Robles was alert, and oriented to time, place, and person. He was calm and cooperative. He showed normal psychomotor activity, no tremulousness, no sweating, and no abnormal behaviors. Normal speech, not pressured, not slurred. Good range of affect, reports anxiety and only mild depression He denied thinking of suicide, denied thinking of violence or homicide. Denied hallucinations, denied feeling paranoid, there were no delusions. There were no difficulties with thought organization, he was coherent. There was no gross deficits in cognition, no gross deficit in memory Impression and Plan: Robles is a 62-year-old White male who was admitted to [facility] for increased symptoms of depression, and an increase in alcohol consumption. It appears that the patient was on 1mg Xanax daily for several years and ran out about a week before his admission because he was embarrassed to keep calling PCP office for re-fills. He has no prior history of inpatient psychiatric admissions. He has no prior history of suicide attempts. He has no prior history of detoxifications or rehabs. Diagnoses: Unspecified depressive disorder Unspecified Anxiety Disorder Alcohol use disorder, severe Hypertension Treatment Plan Update: Increase amlodipine to 10 mg daily Inpatient psychiatric care, 15 minute checks, the nursing will do nursing assessments vital signs and provide education, The social work manager to obtain collateral information and set up aftercare plans Group therapy, Milieu therapy Psychiatrist will meet with the patient on a daily basis to evaluate mental status and evaluate medications Continue [facility] protocol
--- NOTE | 2017-07-31 12:18 | SOCIAL WORKER PROG NOTE PSYCH ---
Social Work Progress Note Progress Note Family meeting held with Robles, his , and his son Robles Varner. Dr. Carbajal was also in attendance. Mrs. Hall and Robles's son talked at length about Robles's drinking behavior and how it has worsened over the years after his son's passing in 2000. They feel it is at a point where he is not really functioning like he was and is at risk for serious health problems. They conveyed their concerns about all of this and expressed his need to get help now. Family is pushing for him to go to rehab. Robles sat quietly with his arms crossed at the meeting. He was encouraged to share his thoughts. He told them he really didn' t want to go. He has alot of anxieties about not knowing what to expect. There was alot of discussion around the benefits that rehab could provide to him. Family definetely would like to see engagement in treatment. He stated in the end that he would think about things. Later in the afternoon I was informed that he signed a release for [facility]. I called admissions and gave some basic demographic information and insurance. I faxed over a clinical packet and was told that Robles should call his insurance to allow information to be given to [facility].
[2017-08-01] VITALS (7 sets, daily range): BP systolic 125–161; BP diastolic 73–85
--- NOTE | 2017-08-01 11:52 | SOCIAL WORKER PROG NOTE PSYCH ---
Social Work Progress Note Progress Note Spoke with Robles about admission to [facility]. He wanted to proceed with the phone call to insurance. After calling member services, we discovered that his son had already given permission for [employer] to speak with [employer]. Called Admissions at [facility] and spoke with Eliu. Eliu was able to do a screening with Robles over the phone. Robles hung up and shared that they have to work out payment with Robles's . They think that Robles may end up owing around 6,000. They are willing to set up a payment plan. He said he will need to come off of the Ativan he is currently on. They don't see accepting him until at least Friday so he can come off the Ativan. He seems okay with this plan. He said he is doing well. Remains quiet with flat constricted affect. Doing some reading to pass the time. He asked if he could go home and finish the Ativan taper? I told him that we would do a seamless transition to [employer]. Called [employer] and left updated clinical for continued stay with queenie- ext. [phone].
--- NOTE | 2017-08-01 12:39 | CP SOUTH PROGRESS NOTE PSYCH ---
Psych (Inpt) Progress Note Progress Note Vitals Blood Pressure 127/73 08/01/17 1236 Pulse Rate 66 08/01/17 1236 Temperature 97.9 08/01/17 0912 Mental Status Examination: Robles was alert and oriented to time, place, and person. He was calm and cooperative. He showed normal psychomotor activity, no tremulousness, no sweating, and no abnormal behaviors. His speech was not pressured, nor slurred. He showed constricted range of affect, reports anxiety and only mild depression. He denied thinking of suicide, denied thinking of violence or homicide. Denied hallucinations, denied feeling paranoid, there were no delusions. There were no difficulties with thought organization, he was coherent, no deficits in cognition or memory Assessment: Robles is a 62-year-old White male who was admitted to the inpatient psychiatric unit the night of July 28-2017 for increased symptoms of depression and increase in alcohol consumption. he was on 1mg Xanax daily for several years and ran out about a week before his admission because he was embarrassed to keep calling PCP office for re-fills. He has no prior history of inpatient psychiatric admissions. He has no prior history of suicide attempts. He has no prior history of detoxifications or rehabs. Diagnoses: Unspecified Depressive Disorder Unspecified Anxiety Disorder Alcohol use disorder, severe Hypertension Treatment Plan Update: D/C CIWA protocol D/C Ativan for CIWA Reduce bedtime Ativan dose to 0.5 mg QHS Start Sertraline 50 mg daily Start Naltrexone 25 mg daily Continue amlodipine 10 mg daily Continue Gabapentin for seizure prophylaxis Inpatient psychiatric care, 15 minute checks, the nursing will do nursing assessments vital signs and provide education, The long term care social worker to obtain collateral information and set up aftercare plans, Group therapy, Milieu therapy , Psychiatrist will meet with the patient on a daily basis to evaluate mental status and evaluate medications
[2017-08-02 08:36] VITALS: BP 128/70
--- NOTE | 2017-08-02 09:22 | CP SOUTH PROGRESS NOTE PSYCH ---
Psych (Inpt) Progress Note Progress Note Include the following elements, when applicable: Involvement in the active treatment of the patient with behavioral observations of the patient and the patient's response to the treatment. Review of the ongoing treatment process in the context of the treatment plan. Indication of how multi-disciplinary staff members are carrying out the treatment plan. Plans for future interventions and recommendations for revision of the treatment plan. Liaison with other physicians/providers. Progress Note: SUBJECTIVE: Patient states he is doing well today, mood stable, looking forward to discharge to [facility] 21 day program early next week. Patient eating and sleeping well. No SI/HI/AVH/SIB. No side effects to medications. No abnormal movements reported. Patient does report that he is having cigarette cravings and shows patient for square areas of rash on upper arms due to nicotine patch. Discussed use of nicotine replacement gum. No alcohol craving. No headaches, tinnitus, vision changes or other sxs of hypertension. OBJECTIVE: Per nursing, pt slept well overnight without any acute events. Pt remained in behavioral control, adherent with staff instructions and medications. Hypertensive at times but currently wnl. Current Medications Sig/Bentley Start time Last Medication Dose Route Stop Time Status Admin Acetaminophen 650 MG Q4P PRN 07/28 2315 AC PO Amlodipine Besylate 10 MG DAILY 08/01 1000 AC 08/02 PO 0747 Folic Acid 1 MG DAILY 07/29 1000 DC 08/01 PO 0912 Gabapentin 900 MG AT BEDTIME 07/30 2200 AC 08/01 PO 2130 Gabapentin 300 MG 0800,1400 / 1400 AC 08/02 PO 0747 Hydrocortisone 1 ALTA BID 07/31 2223 AC 08/01 EXT 2131 Lorazepam 1 MG AT BEDTIME 07/31 2200 DC 07/31 PO 2134 Lorazepam 0.5 MG 1000,1600 07/31 1600 AC 08/02 PO 08/07 1559 0748 Lorazepam 2 MG Q4 HRS NEEDED PRN 07/28 2315 DC PO Lorazepam 1 MG Q4 HRS NEEDED PRN 07/28 2315 DC PO Losartan Potassium 100 MG DAILY 07/29 1000 AC 08/02 PO 0749 Multivitamins 1 TAB DAILY 07/29 1000 DC 08/01 PO 0912 Naltrexone HCl 25 MG DAILY 08/02 1000 AC 08/02 PO 0750 Nebivolol 10 MG DAILY 07/29 1000 AC 08/02 PO 0748 Nicotine 21 MG DAILY 07/29 1830 AC 08/01 [facility] 0913 Nicotine 2 MG Q2P PRN 07/29 1200 AC PO Sertraline HCl 50 MG DAILY 08/02 1000 AC 08/02 PO 0749 Thiamine HCl 100 MG DAILY 07/29 1000 DC 08/01 PO 0912 Vital Signs Date Time Temp Pulse Resp B/P B/P Pulse O2 O2 Flow FiO2 Mean Ox Delivery Rate 08/02 0836 96.9 73 128/70 08/02 0749 96.0 65 97 157/85 08/02 0748 96.0 65 97 157/85 08/02 0747 96.0 65 97 157/85 08/01 2155 96.0 65 157/85 08/01 1550 69 125/75 08/01 1545 69 125/75 08/01 1236 66 127/73 08/01 1205 60 127/ MSE: GENERAL: Alert and oriented x3, good eye contact, well-groomed, no apparent distress, eyes with conjunctival injection. SPEECH: Moderate rate and volume, normal prosody, fluent MOTOR: No tics, tremors, stereotypy, or abnormal movements MOOD: "Good." AFFECT: calm, a bit pprehensive, mood congruent, good range, non-labile, reasonably well related THOUGHT PROCESS: Logical, linear and goal-directed THOUGHT CONTENT: No SI/SI/AVH/SIB, no apparent grandiosity, paranoia, delusions , obsessions, ruminations COGNITION: No apparent deficit in attention, memory or concentration JUDGMENT: Fair INSIGHT: Fair ASSESSMENT: Robles is a 62-year-old White male who was admitted to the inpatient psychiatric unit the night of July 28-2017 for increased symptoms of depression and increase in alcohol consumption. he was on 1mg Xanax daily for several years and ran out about a week before his admission because he was embarrassed to keep calling PCP office for re-fills. He has no prior history of inpatient psychiatric admissions. He has no prior history of suicide attempts. He has no prior history of detoxifications or rehabs. Today, patient is doing well except for cigarette cravings. Diagnoses: Unspecified Depressive Disorder Unspecified Anxiety Disorder Alcohol use disorder, severe Hypertension PLAN: -maintain safety, vs tid, q15min checks -continue meds, except discontinue nicotine patch due to rash, will list as allergy -Tolerating increase in sertraline and naltrexone, no alcohol cravings -Encouraged use of nicotine gum for cravings -Patient looking forward to discharge to [facility] early next week -continue plan PLAN: -maintain safety, vs tid, q15min checks -continue meds -continue plan
[2017-08-02 11:56] VITALS: BP 119/64
[2017-08-02 15:51] VITALS: BP 128/63
[2017-08-02 19:46] VITALS: BP 142/86
[2017-08-02 20:03] VITALS: BP 126/64
--- NOTE | 2017-08-03 00:17 | CP SOUTH PROGRESS NOTE PSYCH ---
Psych (Inpt) Progress Note Progress Note Progress Note: SUBJECTIVE: Patient watching TV and lounge, talking with peers. Patient did not try nicotine gum, feels that his cravings are doing okay. Does not feel any withdrawal at this time. Looking forward to going to [place] as soon as possible [place] this week. Patient eating and sleeping well. No SI/HI/AVH/SIB. No side effects to medications. No abnormal movements reported. Feeling well, mood stable. OBJECTIVE: Per nursing, pt slept well overnight without any acute events. Pt remained in behavioral control, adherent with staff instructions and medications. VSS. Current Medications Sig/Bentley Start time Last Medication Dose Route Stop Time Status Admin Acetaminophen 650 MG Q4P PRN 07/28 2315 AC PO Amlodipine Besylate 10 MG DAILY 08/01 1000 AC 08/03 PO 0800 Gabapentin 900 MG AT BEDTIME 07/30 2200 AC 08/02 PO 2140 Gabapentin 300 MG 0800,1400 07/30 1400 AC 08/03 PO 0759 Hydrocortisone 1 ALTA BID 07/31 2223 AC 08/03 EXT 0801 Lorazepam 0.5 MG 1000,1600 07/31 1600 AC 08/03 PO 08/07 1559 0758 Losartan Potassium 100 MG DAILY 07/29 1000 AC 08/03 PO 0759 Naltrexone HCl 25 MG DAILY 08/02 1000 AC 08/03 PO 0800 Nebivolol 10 MG DAILY 07/29 1000 AC 08/03 PO 0758 Nicotine 21 MG DAILY 07/29 1830 DC 08/01 TOP 0913 Nicotine 2 MG Q2P PRN 07/29 1200 AC PO Sertraline HCl 50 MG DAILY 08/02 1000 AC 08/03 PO 0759 Vital Signs Date Time Temp Pulse Resp B/P B/P Pulse O2 O2 Flow FiO2 Mean Ox Delivery Rate 08/03 799 98.0 76 126/79 08/03 0759 98.0 76 126/79 08/03 0758 98.0 76 97 126/79 08/03 0754 98.0 76 126/79 08/02 2002 126/64 08/02 1946 96.3 54 142/86 08/02 1551 78 128/63 08/02 1156 73 119/64 08/02 0836 96.9 73 128/70 MSE: GENERAL: Alert and oriented x3, good eye contact, well-groomed, no apparent distress. SPEECH: Moderate rate and volume, normal prosody, fluent MOTOR: No tics, tremors, stereotypy, or abnormal movements MOOD: "FIne." AFFECT: calm, cooperative, mood congruent, good range, non-labile, well related THOUGHT PROCESS: Logical, linear and goal-directed THOUGHT CONTENT: No SI/SI/AVH/SIB, no apparent grandiosity, paranoia, delusions , obsessions, ruminations COGNITION: No apparent deficit in attention, memory or concentration JUDGMENT: Good INSIGHT: Fair ASSESSMENT: Robles is a 62-year-old White male who was admitted to the inpatient psychiatric unit the night of July 28-2017 for increased symptoms of depression and increase in alcohol consumption. he was on 1mg Xanax daily for several years and ran out about a week before his admission because he was embarrassed to keep calling PCP office for re-fills. He has no prior history of inpatient psychiatric admissions. He has no prior history of suicide attempts. He has no prior history of detoxifications or rehabs. Today, patient is doing well, no withdrawal, minimal cigarette cravings, looking forward to discharge to [facility]. Diagnoses: Unspecified Depressive Disorder Unspecified Anxiety Disorder Alcohol use disorder, severe Hypertension PLAN: -maintain safety, vs tid, q15min checks -continue meds -Tolerating increase in sertraline and naltrexone, no alcohol cravings -Encouraged use of nicotine gum for cravings -Patient looking forward to discharge to [facility] rehabilitation early this week -continue plan
[2017-08-03 07:54] VITALS: BP 126/79
[2017-08-03 12:18] VITALS: BP 105/68
[2017-08-03 15:53] VITALS: BP 131/84
[2017-08-03 20:09] VITALS: BP 122/78
[2017-08-04 07:40] VITALS: BP 139/81
--- NOTE | 2017-08-04 08:10 | DISCHARGE SUMMARY REPORT-PSYCH ---
Visit Information Visit Dates/Diagnosis' Admission Date: 07/28/2017 Discharge Date: 08/04/17 Reason for Admission: The patient was admitted for increasing depression and increase in alcohol use Psy Discharge Primary Diag: Unspecified Depressive Disorder , unspecified anxiety disorder Psy Discharge Secondary Diag: alcohol use disorder Hospital Course Significant Lab Findings: Vision came with a positive benzodiazepine screen on the unit and otherwise negative and his blood alcohol level was also less than 10 on July 28 Course Complications: There were no complications while the patient was on the inpatient psychiatric unit Consultations: The patient had a history and physical examination, it was done it was done on 07/29/[address] Batres blood pressure was noted to the patient ran some diastolic readings around 100 and also in the 90s the patient was continued on his blood pressure medications and the detoxification protocol using Ativan, for the blood pressure to be monitored after the detoxification is completed Allergies: Coded Allergies: nicotine (Mild, skin rash to patch formulation only 08/02/17) Hospital Course/TX Response: The patient had an uneventful course on the inpatient psychiatric unit. His withdrawal symptoms were mostly in the mild spectrum to minimal or none. The patient was detoxified using tapering doses of Ativan. In the beginning the patient was not in favor of starting an antidepressant or a medication for anxiety. After the family meeting we had with his and his son, he was more open to accepting medication to address depressive symptoms as well as anxiety symptoms. The patient and his family attributed his depression to dating back to 2000 following the of his young son in a car accident. The patient was also on the fence regarding her going to a rehabilitation program, he remained on the fence and even after the family meeting, he indicated that his father that he felt that his son son was pressuring him and that he is a grown man and he should be making his own decisions. The patient was told not to make any decisions right this minute the following the family meeting and to take his time thinking about his options. On August 01 the patient reported that he made up his mind that he is going to a rehabilitation program, [facility] he also accepted medication for anxiety and depression and he was started on Zoloft and. I also educated him on naltrexone to prevent relapses or at least help reduce the risk of relapse is he also was open to that and he was started on 25 mg of naltrexone. The patient was evaluated over the weekend by Dr. Tovar, as she noted that the patient was stable and not showing any the symptoms of withdrawal there was no changes in his treatment plan over the weekend off the and the . On August 04 the patient reported that he was ready for discharge to [facility] he was free of any withdrawal symptoms he tolerated the Zoloft and the naltrexone well and I felt that he was clinically appropriate for discharge to a rehabilitation program. Vitals on 08/04/2017 Blood Pressure 139/81 08/04/17 0740 Pulse Rate 53 08/04/17 0740 Temperature 96.1 08/04/17 0740 08/04/2017 Mental Status Examination: Robles was alert and oriented to time, place, and person. He was calm and cooperative. He showed normal psychomotor activity, no tremulousness, no sweating, and no palpitations. Robles has not shown any confusion, disorientation or abnormal behaviors. His speech was not pressured, nor slurred. He showed constricted range of affect. He acknowledged anxiety about going to [facility]. His mood is--mildly, in his estimation--depressed. He denied thinking of suicide, denied thinking of violence or homicide. Robles did not experience any hallucinations during detox, he denied feeling paranoid, and there were no delusions. There were no difficulties with thought organization, he was coherent, and did not show gross deficits in cognition or memory Assessment: Robles is a 62-year-old White male who was admitted to the inpatient psychiatric unit the night of July 28-2017 for increased symptoms of depression and increase in alcohol consumption. Robles was on 1mg Xanax daily for several years and ran out about a week before his admission because he was embarrassed to keep calling PCP office for re-fills. He has no prior history of inpatient psychiatric admissions. He has no prior history of suicide attempts. He has no prior history of detoxifications or rehabs. His detoxification was uneventful and he is ready for the next step, rehab. Discharge Diagnoses: Unspecified Depressive Disorder Unspecified Anxiety Disorder Alcohol use disorder, severe Hypertension Discharge Plan: Discharge to [facility] HBIPS - Tobacco Use Treatment Offered Post DC Medications Offered: Refused Tob Medication Tx ([facility] allows smoking) Post DC Tobacco Treatment Plan: Other Tobacco Tx Pgm - EtOH/Drug Use D/O Treatment Offered Post DC Medications Offered: Script Given-See Med List Post DC EtOH/SubAbuse [place] Plan: Other SubAbuse/Dual Pgm Program Appt Date: 08/04/17 Metabolic Screening - Screen if on a Neuroleptic Medication - Metabolic screening should include: - Blood Pressure, BMI, Glucose or Hgb A1c, & a - Lipid profile from within the past 365 days. Metabolic Screening ([X]) Not Applicable, patient not on a neuroleptic. OR () Patient on a neuroleptic(s) . Enter below results for Hemoglobin A1C, and lipid panel if obtained during the last 365 days. BMI: 32.000 Blood Pressure: 139/81 Laboratory Results From [facility] (If applicable): Discharge Instructions General Discharge Information Multiple Neuroleptics: ([x]) Not Applicable Discharge Diet Regular Discharge Activity As Tolerated DC Disposition: [facility] Referrals Ordered Referrals Provider Referral 08/04/17 For Groups: [[facility]] [facility] admission 08/04/17 [address] [place] [address] Prescriptions Stop taking the following medications: Duloxetine HCl (Duloxetine HCl) 30 MG CAPSULE.DR ORAL DAILY Qty = 60 Alprazolam (Alprazolam) 1 MG TABLET ORAL DAILY Qty = 30 Continue taking these medications: Losartan Potassium (Losartan Potassium) 100 MG TABLET 1 Tablet ORAL DAILY Qty = 30 Comments: Last Taken:08/04/17 Time:0900 Nebivolol HCl (Bystolic) 10 MG TABLET 1 Tablet ORAL DAILY Qty = 30 Comments: Last Taken:08/04/17 Time:0900 Start taking the following new medications: Amlodipine Besylate (Norvasc) 10 MG TABLET 10 Milligram ORAL DAILY Qty = 30 No Refills Comments: Last Taken:08/04/17 Time:0900 Naltrexone HCl (Naltrexone HCl) 50 MG TABLET 50 Milligram ORAL DAILY Qty = 30 No Refills Comments: Last Taken:08/04/17 Time:0900 Gabapentin (Gabapentin) 300 MG CAPSULE 300 Milligram ORAL 0800,1400 Qty = 60 No Refills Comments: Last Taken:08/04/17 Time:0900 Gabapentin (Gabapentin) 300 MG CAPSULE 900 Milligram ORAL AT BEDTIME Qty = 90 No Refills Comments: Last Taken:08/03/17 Time:2200 Sertraline HCl (Sertraline HCl) 50 MG TABLET 50 Milligram ORAL DAILY Qty = 30 No Refills Comments: Last Taken:08/04/17 Time:0900 Copies To[facility]
[2017-08-04] MEDS ORDERED: NALTREXONE HCL50 M1 PO (08:24)
[2017-08-04] MEDS ORDERED: SERTRALINE HCL50 MG PO (08:24)
[2017-08-04] MEDS ORDERED: GABAPENTIN300 M2 PO ×2 (08:24)
[2017-08-04] MEDS ORDERED: NORVASC10 M1 PO (08:24)
--- NOTE | 2017-08-04 08:25 | Patient Discharge Instructions ---
Psych Discharge Inst General Discharge Information Reason for Admission: Depression and Alcohol Use (in excess) Psy Discharge Primary Diag+ Unspecified Depressive Di Unspecified Anxiety Disor Psy Discharge Secondary Diag+ Alcohol Use Disorder Hypertension Summary Tests/Major Procedures Lab ALT 25 U/L 07/28/172116 AST 20 U/L 07/28/172116 Albumin 4.2 g/dL 07/28/172116 Albumin/Globulin Ratio 1.6 % 07/28/172116 Alkaline Phosphatase 67 U/L 07/28/172116 Globulin 2.7 gm/dL 07/28/172116 Total Bilirubin 0.5 mg/dL 07/28/172116 Total Protein 6.9 g/dL 07/28/172116 Serum Alcohol < 10.0 MG/DL 07/28/172116 U Benzodiazepines Scrn 261 NG/ML H 07/28/172154 Studies Pending at DC: None Patient Instructions Contact Information Your Psychiatrist on [facility] was Je Armando MD * If you are experiencing an emergency related to this hospitalization, please call [phone] to contact the treating psychiatrist or the psychiatrist-on- call. * To Request a copy of your medical records, please contact the Medical Records Department at [phone]. * To request results of studies pending at the time of discharge, please call [phone]. * Continue your Medications until directed to stop by your Healthcare provider. General Medication Information Please continue to take your new medications and your continued home medications , unless otherwise indicated on your discharge medication list, or unless directed by your MD or SMOKE JUMPER SUPERVISOR to stop them. Special Instructions Diet Heart Healthy Activity As Tolerated - Tobacco Use Treatment Offered Post DC Medications Offered: Refused Tob Medication Tx Post DC Tobacco Treatment Plan: Other Tobacco Tx Pgm - EtOH/Drug Use D/O Treatment Offered Post DC Medications Offered: Script Given-See Med List Post DC EtOH/SubAbuse [place] Plan: Other SubAbuse/Dual Pgm Program Appt Date: 08/04/17 Metabolic Screening ([X]) Not Applicable, patient not on a neuroleptic. OR () Patient on a neuroleptic(s) . Enter below results for Hemoglobin A1C, and lipid panel if obtained during the last 365 days. BMI: 32.000 Blood Pressure: 139/81 Laboratory Results From [facility] (If applicable): Advance Directives Does the Patient have Medical Advance Directives No/Refused further info Does Pt have Psychiatric Advance Directives? No/Refused further info Does Patient have a Designated Surrogate Decision Maker: No Information About Psychiatric Advance Directives Provided? Yes Discharge Plan Post Hospital Treatment Plan: [facility]
--- NOTE | 2017-08-04 09:09 | SOCIAL WORKER PROG NOTE PSYCH ---
Social Work Progress Note Progress Note Called [facility] this morning and spoke with Yevgeniy in admissions. He said they were all set to take Robles today and that their fleet driver will be picking him up. He couldn't give an exact timeframe yet. He will need 30 days worth of meds called into [facility] [phone]. [facility] called back and said they will arrive to pharmacy picking technician Robles at 10:30am. Spoke with Robles and he seems ready to go. A little nervous due to not knowing what to expect. Said he saw his Brother Anthony over the weekend and they spoke for awhile. His Brother Anthony has been in recovery for over 20 years. Had several other family visits over the weekend as well. Feels supported. Encouraged him to take a day at a time and just focus on today. Robles shared that his guns at home were removed and transferred to his son for now. He reporting having 4 guns. I told him it was the law given the fact that he was here. He didn't seem upset and stated he hadn't used them in a long time anyway. He is hoping to get them back in 6 months. Encouraged him to look at this as a new beginning for him. Wished him well.
[2017-08-04 09:12] VITALS: BP 139/81
--- NOTE | 2017-08-04 11:15 | SOCIAL WORKER PROG NOTE PSYCH ---
Social Work Progress Note Faxed Referral(s) Referred To: [facility] Transition of Care Documents sent: Health Summary Faxed to: [facility] admissions Fax #: [phone] Faxed by: Kamala Bishop Date faxed: 08/04/17 Time Faxed: 1000
== END 2017-08-04 10:40 | disposition other institution (70) | DRG 881 ==
LOC: ERH 20:23 → CP SOUTH 23:08 → ERHI 23:08 → CP SOUTH 07-29 02:18
PROVIDERS: Emergency Medicine
DX: F32.9 Major depressive disorder, single episode, unspecified (principal); F41.9 Anxiety disorder, unspecified; Z72.89 Other problems related to lifestyle; I10 Essential (primary) hypertension
CPT/HCPCS: ERO; 80307; G0480; J3490